=== PATIENT | male | born 1995 | race Hispanic/Latino ===

== ENCOUNTER 2021-07-06 00:26 | Emergency (ER) | payer SELFPAY ==
[2021-07-06 01:52] LABS: SARS-CoV-2 NAA Rapid Test Not Detected (NotDetected)
[2021-07-06] MEDS ORDERED: Acetaminophen/Codeine 30-300mg Tablet ONE (01:56)
== END 2021-07-06 02:18 | disposition home or self-care (01) ==
LOC: CSHERS 00:26
DX: J10.1 Influenza due to other identified influenza virus with other respiratory manifestations (principal); R11.2 Nausea with vomiting, unspecified; Z20.822 Contact with and (suspected) exposure to COVID-19
CPT/HCPCS: 0240U; 71045